=== PATIENT | male | born 1970 | race Caucasian/White ===

== ENCOUNTER 2022-06-01 07:02 | Day surgery (SDC) | payer BC ==
[2022-04-11 12:25] VITALS: BMI 33.0
[~2022-06-01 07:02] MED LIST: LACTATED RINGERS 1,000 ML IV SCH; LIDOCAINE 1% (10MG/ML) FOR IV START INTRADERMA PRN
[2022-06-01 07:33] VITALS: TEMP 97
--- NOTE | 2022-06-01 07:36 | P.GSHP ---
History of Present Illness H&P Date: 06/01/22 CHIEF COMPLAINT: Colon screen HISTORY OF PRESENT ILLNESS: The patient is a 51-year-old male who presents for colon screen. Lower endoscopy was offered for further evaluation and management. PAST MEDICAL HISTORY: Please see list. PAST SURGICAL HISTORY: Please see list. MEDICATIONS: Please see list. ALLERGIES: Please see list. SOCIAL HISTORY: No illicit drug use FAMILY HISTORY: No reports of Crohn disease or ulcerative colitis. REVIEW OF ORGAN SYSTEMS: CONSTITUTIONAL: No reports of fevers or chills. PHYSICAL EXAM: VITAL SIGNS: Stable GENERAL: Well-developed pleasant in no acute distress. HEENT: No scleral icterus. Extraocular movements grossly intact. Moist buccal mucosa. NECK: Supple without lymphadenopathy. CHEST: Unlabored respirations. Equal bilateral excursions. CARDIOVASCULAR: Regular rate and rhythm. Distal 2+ pulses. ABDOMEN: Soft, nontender, nondistended. MUSCULOSKELETAL: No clubbing, cyanosis, or edema. ASSESSMENT: 1. Colon screen. PLAN: 1. Recommend proceeding with a lower endoscopy Past Medical History Past Medical History: Sleep Apnea/CPAP/BIPAP Additional Past Medical History / Comment(s): Mild Sleep Apnea- no CPAP use. History of Any Multi-Drug Resistant Organisms: None Reported Past Surgical History: Orthopedic Surgery Additional Past Surgical History / Comment(s): Arm surgery. Past Anesthesia/Blood Transfusion Reactions: No Reported Reaction Past Psychological History: Anxiety, Depression Smoking Status: Never smoker Past Alcohol Use History: Occasional Past Drug Use History: None Reported - Past Family History Mother Family Medical History: No Reported History Medications and Allergies Home Medications Medication Instructions Recorded Confirmed Type Citalopram Hydrobromide 40 mg PO QAM 05/30/22 06/01/22 History [Citalopram HBr] Allergies Allergy/AdvReac Type Severity Reaction Status Date / Time No Known Allergies Allergy Verified 05/30/22 12:54 Surgical - Exam Vital Signs Temp Pulse Resp BP Pulse Ox 97 F L 60 20 130/83 97 06/01/22 07:31 06/01/22 07:31 06/01/22 07:31 06/01/22 07:31 06/01/22 07:31
[2022-06-01] MEDS ORDERED: PROPOFOL 10 MG/ML 20 ML VIAL IV ONE (07:58)
[2022-06-01 08:24] VITALS: RESP 16
--- NOTE | 2022-06-01 08:28 | P.PCN ---
Date of Procedure: 06/01/22 Description of Procedure: PREOPERATIVE DIAGNOSIS: Colonoscopy screening POSTOPERATIVE DIAGNOSIS: Proctitis Focal colitis OPERATION: Colonoscopy to the ileocecal valve and appendiceal orifice, cecum Colonoscopy with cold forceps biopsy SURGEON: Nan Chavira MD. ANESTHESIA: MAC. INDICATIONS: The patient is an 51-year-old male who presents for colonoscopy screening. Benefits and risks were described and informed consent was obtained. DESCRIPTION OF PROCEDURE: The patient had undergone Sutab prep. The patient had been brought into the operating room and laid in the left lateral decubitus position. After adequate intravenous sedation, the rectum was examined with 2% lidocaine jelly. The pr ostate was unremarkable. No external hemorrhoids were encountered. The rectal tone was within normal limits. No lesions were palpated in the rectal vault. An Olympus colonoscope was advanced until the cecum, ileocecal valve and appendiceal orifice were clearly viewed. The prep was good. No sigmoid diverticulosis was encountered. Moderate inflammation of the rectum was identified with cold forcep biopsies obtained. Retroflexion of the scope demonstrated grade 2 internal hemorrhoids without active bleeding or inflammation. The colon was desufflated. The patient had tolerated the procedure well. Withdrawal time was over 6 minutes. FINDINGS: Aronchick preparation quality scale 1 (1-5) Internal hemorrhoids, grade 2 No external hemorrhoids No arteriovenous malformations. No sigmoid diverticulosis No polyps Focal ulcerative colitis affecting the rectum 10 cm from the anal verge RECOMMENDATIONS: Repeat colonoscopy in 2026 Trial of Flagyl 300 mg 3 times daily for colitis Plan - Discharge Summary Discharge Rx Participant: No New Discharge Prescriptions: New metroNIDAZOLE [Flagyl] 500 mg PO TID #30 tab Continue Citalopram Hydrobromide [Citalopram HBr] 40 mg PO QAM Discharge Medication List Citalopram Hydrobromide [Citalopram HBr] 40 mg PO QAM 05/30/22 [History] metroNIDAZOLE [Flagyl] 500 mg PO TID #30 tab 06/01/22 [Rx] Follow up Appointment(s)/Referral(s): Nan Chavira MD [STAFF PHYSICIAN] - 06/06/22 Patient Instructions/Handouts: Rectal Bleeding (GEN), Colitis (ED) Activity/Diet/Wound Care/Special Instructions: Repeat colonoscopy in 5 years2026 Discharge Disposition: HOME SELF-CARE
[2022-06-01 08:40] VITALS: BP 119/79; PULSE 61
== END 2022-06-01 09:06 | disposition home or self-care (01) ==
LOC: ORWHC2ENDO 07:02
PROVIDERS: ATTEND Surgery Plastic and Reconstructive Surgery
DX: Z12.11 Encounter for screening for malignant neoplasm of colon (principal); K51.20 Ulcerative (chronic) proctitis without complications; K64.1 Second degree hemorrhoids; G47.30 Sleep apnea, unspecified; F41.8 Other specified anxiety disorders; Z79.899 Other long term (current) drug therapy
CPT/HCPCS: 88305; 45380; J2704